=== PATIENT | female | born 1955 | race Caucasian/White ===

== ENCOUNTER 2017-02-08 10:54 | Outpatient (CLI) | payer OTHER | END 2017-02-08 11:27 | LOC: D.MAMMO 10:54 | DX: C50.312 Malignant neoplasm of lower-inner quadrant of left female breast (principal) ==

== ENCOUNTER → 2018-02-09 19:07 | Outpatient (CLI) | payer OTHER | END | disposition home or self-care (01) | LOC: D.MAMMO 01-06 14:30 | DX: C50.312 Malignant neoplasm of lower-inner quadrant of left female breast (principal) ==

== ENCOUNTER 2019-02-07 11:30 | Outpatient (CLI) | payer OTHER | END 2019-02-07 12:00 | disposition home or self-care (01) | LOC: D.MAMMO 11:30 | PROVIDERS: ATTEND Legal Medicine | DX: C50.312 Malignant neoplasm of lower-inner quadrant of left female breast (principal) ==

== ENCOUNTER 2020-02-13 08:00 | Outpatient (CLI) | payer OTHER | END 2020-02-13 10:00 | disposition home or self-care (01) | LOC: D.MAMMO 08:00 | PROVIDERS: ATTEND Legal Medicine | DX: C50.312 Malignant neoplasm of lower-inner quadrant of left female breast (principal) ==

== ENCOUNTER 2021-02-12 09:00 | Outpatient (CLI) | payer OTHER | END 2021-02-12 09:30 | disposition home or self-care (01) | LOC: D.MAMMO 09:00 | PROVIDERS: ATTEND Legal Medicine | DX: Z12.31 Encounter for screening mammogram for malignant neoplasm of breast (principal) ==